=== PATIENT | female | born 1990 | race Caucasian/White ===

== ENCOUNTER 2017-03-23 13:41 | Emergency (ER) | payer MEDICAID ==
[~2017-03-23] VITALS: Ht 160 cm; Wt 94.8 kg
[2017-03-23 14:04] VITALS: Ht 160 cm; Wt 94.8 kg
[2017-03-23 19:27] VITALS: BP 134/79
== END 2017-03-23 19:27 | disposition home or self-care (01) ==
LOC: ED 13:41
DX: N76.0 Acute vaginitis (principal); R10.2 Pelvic and perineal pain
CPT/HCPCS: 87491; 87591; J0696